=== PATIENT | male | born 1995 | race Caucasian/White ===

== ENCOUNTER 2019-12-15 20:23 | Emergency (ER) | payer OTHER, SELFPAY ==
[2019-12-15 20:29] VITALS: BP 119/89; PULSE 66; RESP 19; TEMP 36.8; O2SAT 100
[2019-12-15 20:46] LABS: Basophils Percent Auto 0.2 % (0.2-1.2); Eosinophils Absolute Auto 0.3 K/mm3 (0-0.3); Eosinophils Percent Auto 2.9 % (0-4.4); Hemoglobin 15.4 g/dL (14.0-18.0); Immature Granulocyte Absolute 0.03 K/mm3 (0.00-0.031); Immature Granulocyte Percent A 0.3 % (0-0.5); Lymphocytes Absolute Auto 2.85 K/mm3 (0.9-3.2); Lymphocytes Percent Auto 32.5 % (18.3-44.2); Mean Corpuscular HGB Conc 34.2 g/dl (32-36); Mean Corpuscular Hemoglobin 29.8 pg (26-34); Mean Corpuscular Volume 87.2 fl (80-100); Mean Platelet Volume 9.5 fl (7.4-10.4); Monocytes Absolute Auto 0.6 K/mm3 (0.1-0.6); Monocytes Percent Auto 6.5 % (2.6-8.5); Neutrophils Absolute Auto 5.1 K/mm3 (1.3-6.7); Neutrophils Percent Auto 57.6 % (45.5-73.1); Platelet Count Result 216 k/mm3 (150-375); Red Blood Count 5.16 M/mm3 (4.6-6.20); Red Cell Distribution Width 12.1 % (11.5-14.5); White Blood Count 8.8 K/mm3 (4.5-10.0)
[2019-12-15] MEDS: MAG HYDROX/AL HYDROX/SIMETH 30 ML UDC PO (20:47)
[2019-12-15 20:48] LABS: Add Urine Microscopic? NO; Appearance Urine Clear (Clear); Bilirubin Urine Negative (Negative); Blood Urine Negative (Negative); Color Urine Yellow (Yellow); Glucose Urine UA Negative (Negative); Ketones Urine Negative (Negative); Leukocyte Esterase Ur Negative LEU/UL (Negative); Nitrate Urine Negative (Negative); Protein Urine Negative (Negative); Specific Grav Ur 1.025 (1.001-1.035); Urobilinogen Urine Negative mg/dL (<2.0)
[2019-12-15 20:57] LABS: Alanine Aminotransferase 19 U/L (4-50); Albumin Level 4.8 g/dL (3.5-5.1); Alkaline Phosphatase 54 U/L (38-126); Aspartate Amino Transferase 24 U/L (17-59); Bilirubin,Total 0.4 mg/dL (0.2-1.3); Blood Urea Nitrogen 18 mg/dL (9-20); Calcium 9.4 mg/dL (8.4-10.2); Carbon Dioxide 27 mmol/L (22-30); Chloride 104 mmol/L (98-107); Estimated CRCL calculation 97 ml/min; Estimated Glomerular Filt Rate > 60; Glucose 108 mg/dL (75-110); Lipase 24 U/L (23-300); Sodium 139 mmol/L (137-145)
[2019-12-15 21:21] VITALS: BP 109/78; PULSE 56; RESP 18; O2SAT 100
--- NOTE | 2019-12-15 21:59 | ED.ABDPAIN ---
HPI - Abdominal Pain General Chief Complaint: Abdominal Pain Stated Complaint: cramping in side Time Seen by Provider: 12/15/19 20:25 History of Present Illness HPI narrative: Patient is a 24-year-old male who presents ER with right mid abdominal pain. Patient reports he has had this pain for the last year. It is crampy in nature and occasionally sharp. It is been worse over the last week. He has been seeing Dr. Woodson with GI. Reports he has been taking dicyclomine with minimal relief. He reports he has had a lot of flatulence. No nausea/vomiting/diarrhea/fever/chills/sweats. No dark black stools. No loss of consciousness. Mild constipation. Related Data Home Medications Medication Instructions Recorded Confirmed Zantac 09/15/19 Zofran 09/15/19 Allergies Allergy/AdvReac Type Severity Reaction Status Date / Time No Known Allergies Allergy Verified 09/15/19 13:24 Review of Systems Review of Systems: All systems reviewed & are unremarkable except as noted in HPI and below Constitutional: Constitutional: Denies chills, Denies fever(s) and Denies weakness ENT: Denies nasal congestion and Denies sore throat Cardiovascular: Cardiovascular: Denies chest pain Respiratory: Respiratory: Denies cough, Denies dyspnea and Denies wheezing Gastrointestinal: Gastrointestinal: Reports abdominal pain, Reports bloating, Reports constipation and Denies vomiting Genitourinary: Genitourinary: Denies hematuria, Denies dysuria and Denies urinary frequency PMFSH Past Medical History Medical History (Updated 12/15/19 @ 22:40 by Bryce Lainez MD) Irritable bowel syndrome Surgical History Surgical History (Updated 12/15/19 @ 22:37 by Bryce Lainez MD) No pertinent past surgical history Social History Social History (Updated 12/15/19 @ 22:37 by Bryce Lainez MD) Substance use: never Gender identity (if verbalized by the patient): Male Exam Narrative: Exam Narrative: GENERAL: Well-appearing, well-nourished, and in no acute distress. HEAD: Normocephalic, atraumatic. ENT: Mucous membranes moist. CHEST: Clear to auscultation. No respiratory distress. HEART: Regular rate and rhythm. Normal peripheral pulses. ABDOMEN: Soft, nontender, nondistended, normal active bowel sounds. EXTREMITIES: Normal range of motion. No edema. SKIN: Warm, dry, no rash. NEURO: Alert and oriented x3.\ Course Course Emergency Course: Benign exam with normal lab work. Mylanta improved bloating. Recommend stool softeners for mild constipation and simethicone for bloating. Continue dicyclomine. Vital Signs Vital signs: Vital Signs Temperature 98.2 F 12/15/19 20:29 Pulse Rate 66 12/15/19 20:29 Respiratory Rate 19 12/15/19 20:29 Blood Pressure 119/89 12/15/19 20:29 Pulse Oximetry 100 12/15/19 20:29 Temperature 98.2 F 12/15/19 20:29 Pulse Rate 56 L 12/15/19 21:21 Respiratory Rate 18 12/15/19 21:21 Blood Pressure 109/78 12/15/19 21:21 Pulse Oximetry 100 12/15/19 21:21 MDM - Abdominal Pain Lab Data Result diagrams: 12/15/19 20:39 12/15/19 20:39 Labs: Lab Results 12/15/19 12/15/19 12/15/19 Range/Units 20:39 20:39 20:42 WBC 8.8 (4.5-10.0) K/mm3 RBC 5.16 (4.6-6.20) M/mm3 Hgb 15.4 (14.0-18.0) g/dL Hct 45.0 (42.0-52.0) % MCV 87.2 (80-100) fl MCH 29.8 (26-34) pg MCHC 34.2 (32-36) g/dl RDW 12.1 (11.5-14.5) % Plt Count 216 (150-375) k/mm3 MPV 9.5 (7.4-10.4) fl Immature Gran % (Auto) 0.3 (0-0.5) % Neut % (Auto) 57.6 (45.5-73.1) % Lymph % (Auto) 32.5 (18.3-44.2) % [place] % (Auto) 6.5 (2.6-8.5) % Eos % (Auto) 2.9 (0-4.4) % Baso % (Auto) 0.2 (0.2-1.2) % Lymph # (Auto) 2.85 (0.9-3.2) K/mm3 [place] # (Auto) 0.6 (0.1-0.6) K/mm3 Eos # (Auto) 0.3 (0-0.3) K/mm3 Baso # (Auto) 0.0 (0.0-0.1) K/mm3 Abs Immat Gran (auto) 0.03 (0.00-0.031) K/mm3 Absolut
[2019-12-15 22:50] VITALS: BP 123/87; PULSE 91; RESP 18; TEMP 36.7; O2SAT 100
== END 2019-12-15 22:54 | disposition home or self-care (01) ==
PROVIDERS: Emergency Provider Emergency Medicine; PCP Internal Medicine
DX: K58.9 Irritable bowel syndrome, unspecified (principal)
CPT/HCPCS: 36415; 80053; 81003; 83690; 85025; 99283; A9270

== ENCOUNTER 2020-02-20 10:47 | Outpatient (CLI) | payer OTHER, SELFPAY ==
--- NOTE | ~2020-02-20 | US_ITS ---
EXAMINATION: US right upper quadrant DATE: 02/20/2020 11:22 INDICATION: Right upper quadrant abdominal pain. TECHNIQUE: Multiple grayscale and Doppler ultrasound images of the abdomen were obtained. COMPARISON: CT abdomen and pelvis 09/15/2019 FINDINGS: The visualized portions of the head and body of the pancreas are normal. The liver is juan miguel l without focal lesion. No liver surface nodularity. There is normal flow in main portal vein. The ga llbladder is normal in size. No gallstones or gallbladder wall thickening. There was no sonographic M urphy sign. The common duct is normal and measures 4 mm. IMPRESSION: 1. Normal right upper quadrant ultrasound. Reviewed, dictated and finalized at location A.
== END 2020-02-20 10:48 | disposition home or self-care (01) ==
LOC: ANHIMG 10:56
PROVIDERS: PCP Internal Medicine; Visit Provider Internal Medicine Gastroenterology
DX: R10.11 Right upper quadrant pain (principal)
CPT/HCPCS: 76705

== ENCOUNTER 2020-02-24 00:18 | Outpatient (CLI) | payer OTHER, SELFPAY ==
[2020-02-24 17:53] LABS: SARS-CoV-2 RNA PCR Negative
== END 2020-02-24 00:19 | disposition home or self-care (01) ==
LOC: ANHCOVIDDT 00:18
PROVIDERS: Visit Provider Internal Medicine Gastroenterology
DX: Z01.818 Encounter for other preprocedural examination (principal); Z11.59 Encounter for screening for other viral diseases
CPT/HCPCS: 87635; C9803; U0003

== ENCOUNTER 2020-02-27 02:28 | Day surgery (SDC) | payer OTHER, SELFPAY ==
[2020-02-22 14:05] VITALS: BMI 27.9
[2020-02-27 07:56] VITALS: BP 111/63; PULSE 57; RESP 18; TEMP 36.1; O2SAT 99
--- NOTE | 2020-02-27 08:00 | WPDANESEPPF ---
Anes - Initial Pre Proc Eval Procedure: Operation Date: 02/27/20 09:00 Proposed Procedures p Esophagogastroduodenoscopy & Colonoscopy - Allan Woodson MD Date/Time: 02/27/20 08:00 Surgeon: Allan Woodson MD Pre Op Diagnosis: Abdominal Pain Patient Data Age: 25 Gender: M Height: 5 ft 11 in Weight: 90.3 kg Last Vital Signs Temp 36.1 C L 02/27/20 07:56 Pulse 57 L 02/27/20 07:56 Resp 18 02/27/20 07:56 BP 111/63 02/27/20 07:56 Pulse Ox 99 02/27/20 07:56 Allergies Allergy/AdvReac Type Severity Reaction Status Date / Time No Known Allergies Allergy Verified 02/27/20 07:55 Home Medications Medication Instructions Recorded Confirmed Type [id number]-[id number]-vit K-lycop 1 tablet PO DAILY 02/22/20 02/22/20 History [Men's Multivitamin] Patient hx anesthesia problems: none Family hx anesthesia problems: none [facility] Past Medical History Medical History (Updated 02/27/20 @ 08:01 by Mau Barksdale MD) Irritable bowel syndrome Overweight Surgical History Surgical History (Updated 02/27/20 @ 08:01 by Mau Barksdale MD) H/O wrist surgery No pertinent past surgical history Social History Social History Substance use: never Gender identity (if verbalized by the patient): Male Anes - Eval Final PreProcedure Day of Procedure 02/27/20 08:00 Patient weight: overweight Heart: regular rate and rhythm Lungs: clear to auscultation Airway: Mallampati scale class II Neurological: alert and oriented Last oral intake: >/= 8 hours ASA classification: II Emergent: no Anesthetic plan: proceed Anesthesia type and monitoring: general GIVS and standard monitoring Informed Consent: The patient's anesthetic plan and its attendant risks and benefits were discussed with the patient/family/POA. Questions were solicited and answers provided to the satisfaction of the patient/family/POA.
[2020-02-27] MEDS: LACTATED RINGERS 1,000 ML 150 ML IV CONT (08:10)
--- NOTE | 2020-02-27 08:28 | WPDGICN ---
Assessment and Plan Assessment and plan (1) Right sided abdominal pain: Code(s): R10.9 - Unspecified abdominal pain Status: Acute Assessment and Plan: Etiology of right-sided abdominal pain of uncertain etiology. May be musculoskeletal. Cannot exclude related to his intestines. Plan is for EGD to exclude organic disease. Continue fiber supplementation ibuprofen is advised for his pain in the antrum. Colonoscopy will be performed as well because of ongoing abdominal pain in irritable bowel syndrome. To exclude organic disease. (2) IBS (irritable bowel syndrome): Code(s): K58.9 - Irritable bowel syndrome without diarrhea Status: Acute Assessment and Plan: Long history of IBS with her regular bowel habits because of ongoing pain and concern GI endoscopy to exclude organic disease will be performed today. GI Consult Note Consult date/time: 02/27/20 08:28 HPI: Mukund Mast is a 25 year old male Seen in evaluation at the request of . patient has a long history of irritable bowel syndrome. Patient has tried a to take fiber on a regular basis. Initially did well for a brief period of time he states over the weekend he has had intermittent diarrhea. His as well as abdominal pain. He states abdominal pain is worse when active. He Thatch is to feel good when at rest. When pain occurs it tends to be on the right side of the abdomen. After recent episode he had improvement with ibuprofen. Family history is noncontributory. He denies weight loss. But is very concerned about ongoing abdominal pain. Recent ultrasound of the right upper quadrant is unremarkable. Review of Systems Review of Systems: All systems reviewed & are unremarkable except as noted in HPI and below PMFSH Past Medical History Medical History Irritable bowel syndrome Overweight Surgical History Surgical History H/O wrist surgery No pertinent past surgical history Social History Social History Substance use: never Gender identity (if verbalized by the patient): Male Meds Home Medications and Allergies Home Medications Medication Instructions Recorded Confirmed Type fvrvhjyn-bdm-cvejs-vit K-lycop 1 tablet PO DAILY 02/22/20 02/22/20 History [Men's Multivitamin] Allergies Allergy/AdvReac Type Severity Reaction Status Date / Time No Known Allergies Allergy Verified 02/27/20 07:55 Vital Signs Vital Signs - 24 hr 02/27/20 07:56 Temperature 36.1 C L Pulse Rate 57 L Respiratory Rate 18 Blood Pressure 111/63 Pulse Oximetry 99 Exam Narrative: Exam Narrative: Physical exam reveals patient to be alert. Vital signs stable. HEENT exam unremarkable. Lungs are clear to auscultation and percussion. Heart is without murmur or extra sounds. Abdominal exam bowel sounds present soft nontender with no hepatosplenomegaly digital external rectal exam normal.
[2020-02-27] MEDS: BENZOCAINE (*SP) 60 ML SPRAY CAN (HURRICAINE) 1 SPRAY MUCOUS MEM (09:13)
--- NOTE | 2020-02-27 09:23 | SUR.OPER ---
egd ended at 915, colon began 921
[2020-02-27 09:40] VITALS: BP 109/62; PULSE 63; RESP 14; O2SAT 99
[2020-02-27 09:50] VITALS: BP 121/77; PULSE 61; RESP 25; O2SAT 99
[2020-02-27 10:00] VITALS: BP 110/76; PULSE 59; RESP 21; O2SAT 100
== END 2020-02-27 10:20 | disposition home or self-care (01) ==
PROVIDERS: Visit Provider Internal Medicine Gastroenterology
PROC: 0DJ08ZZ Inspection of Upper Intestinal Tract, Via Natural or Artificial Opening Endoscopic (ICD-10-PCS; CPT 43235; principal; 2020-02-27 09:00)
DX: R10.11 Right upper quadrant pain (principal); R10.84 Generalized abdominal pain; K58.9 Irritable bowel syndrome, unspecified; K21.9 Gastro-esophageal reflux disease without esophagitis; E66.3 Overweight; Z68.27 Body mass index [BMI] 27.0-27.9, adult
CPT/HCPCS: 43239; 45378; 87081; J2704; J7120

== ENCOUNTER 2021-05-06 09:26 | Emergency (ER) | payer OTHER, SELFPAY ==
[2021-05-06 09:27] VITALS: BP 122/69; PULSE 57; RESP 20; TEMP 36.9; O2SAT 99
--- NOTE | 2021-05-06 11:32 | ED.EYEPROB ---
HPI - Eye Problem General Chief complaint: Eye Problems Stated complaint: r eye pain Time Seen by Provider: 05/06/21 11:22 Source: patient Mode of arrival: ambulatory Limitations: no limitations History of Present Illness HPI Narrative: Patient is 26 years old white male presented to the ED with right eye discomfort and drainage. Patient is a contact lens user, started having some discomfort at the right eye 3 days ago, did not use contact lenses for the last 2 days, this morning he put his contact lens on and starting having severe discomfort, woke up this morning with crust across the eyelashes. Patient denies any fever, chills, nausea, vomiting, foreign body possibility. Patient is not sure if the contact lens still there or not. Related Data Allergies Allergy/AdvReac Type Severity Reaction Status Date / Time No Known Allergies Allergy Verified 05/06/21 11:11 Review of Systems Review of Systems: CONSTITUTIONAL: Denies fever, chills, or sweats. EYES: Denies visual changes, redness, or discharge. ENT: Denies rhinorrhea, congestion, sore throat, or otalgia. CARDIOVASCULAR: Denies chest pain, palpitations, or edema. RESPIRATORY: Denies cough or dyspnea. GASTROINTESTINAL: Denies abdominal pain, nausea, vomiting, or diarrhea. GENITOURINARY: Denies dysuria or hematuria. SKIN: Denies rash or itching. MUSCULOSKELETAL: Denies back pain, joint pain, or myalgia. NEUROLOGIC: Denies headache, numbness, or weakness. PSYCHIATRIC: Denies anxiety or depression. PMFSH Past Medical History Medical History Irritable bowel syndrome Overweight Surgical History Surgical History H/O wrist surgery No pertinent past surgical history Social History Social History Substance use: never Gender identity (if verbalized by the patient): Male Exam Narrative: General appearance: Well-developed, well-nourished Eyes: Slight right conjunctival injection,, pupil intact, reactive to light bilaterally, no foreign body of the lower eye lid or the upper eyelid, no contact lenses ENT: Oropharynx normal, ears normal, nose normal Neck: Supple, nontender Chest and respiratory: Airway patent, no respiratory distress, no accessory muscle use Heart: Regular rate/rhythm Neurologic: Alert and oriented ?3, FOAM MOLDER is normal as tested, no gross motor deficit Course Course Emergency Course: Stable Vital Signs Vital signs: Vital Signs Temperature 36.9 C 05/06/21 09:27 Pulse Rate 57 L 05/06/21 09:27 Respiratory Rate 20 05/06/21 09:27 Blood Pressure 122/69 05/06/21 09:27 Pulse Oximetry 99 05/06/21 09:27 Temperature 36.9 C 05/06/21 09:27 Pulse Rate 57 L 05/06/21 09:27 Respiratory Rate 20 05/06/21 09:27 Blood Pressure 122/69 05/06/21 09:27 Pulse Oximetry 99 05/06/21 09:27 MDM - Eye Problem MDM Narrative Medical decision making narrative: Conjunctivitis secondary to contact lens is my concern, Pseudomonas infection is my concern. Critical Care Time Critical Care Time Critical Care Time: No Discharge Plan Discharge Clinical Impression: Conjunctivitis Qualifiers: Conjunctivitis type: acute Acute conjunctivitis type: bacterial Laterality: right Qualified Code(s): H10.31 - Unspecified acute conjunctivitis, right eye Patient Disposition: Home, Self-Care Condition: Stable Instructions: Antibiotic Form, Conjunctivitis (ED) Additional Instructions: Return if symptoms are worsening , call your family physician for appointment, take Tylenol as as needed for aches and pain, contin
== END 2021-05-06 12:07 | disposition home or self-care (01) ==
PROVIDERS: Emergency Provider Emergency Medicine
DX: H10.31 Unspecified acute conjunctivitis, right eye (principal); K58.9 Irritable bowel syndrome, unspecified
CPT/HCPCS: 99283

== ENCOUNTER 2021-09-23 18:54 | Emergency (ER) | payer OTHER, SELFPAY ==
--- NOTE | 2021-09-23 19:15 | ED.FEVER ---
HPI - Fever General Chief Complaint: Fever Stated Complaint: fever,cold chills,vomiting Time Seen by Provider: 09/23/21 19:15 Source: patient Mode of arrival: ambulatory Limitations: no limitations History of Present Illness HPI Narrative: 26-year-old man comes in today complaining of fever, chills, vomiting, muscle aches and cough and congestion and she started within the last 24 hours. Patient states that he had similar episodes a week ago and also a week before that. Previous episodes resolved within a day or 2. Patient denies shortness of breath, chest pain, diarrhea, rash, bruising, dysuria, hematuria, and sick exposures. He has not had a COVID or influenza vaccines. MD elicited complaint: fever Onset (ago): day(s) (1) Exacerbating factors: nothing Relieving factors: nothing Associated symptoms: chills, myalgias, headache, rhinorrhea, nasal congestion, sore throat, cough, nausea and vomiting Treatments prior to arrival fever: acetaminophen Related Data Allergies Allergy/AdvReac Type Severity Reaction Status Date / Time No Known Allergies Allergy Verified 05/06/21 11:11 Review of Systems Review of Systems: All systems reviewed & are unremarkable except as noted in HPI and below Constitutional: Constitutional: Reports chills, Reports fatigue and Reports fever(s) Eyes: Eyes: Denies change in vision and Denies photophobia ENT: Reports nasal congestion and Reports sore throat Cardiovascular: Cardiovascular: Denies chest pain and Denies radiating jaw, neck or arm pain Respiratory: Respiratory: Reports cough, Denies dyspnea and Denies wheezing Gastrointestinal: Gastrointestinal: Denies abdominal pain, Denies diarrhea, Reports nausea and Reports vomiting Genitourinary: Genitourinary: Denies hematuria, Denies dysuria and Denies urinary frequency Musculoskeletal: Musculoskeletal: Denies back pain, Reports myalgias, Denies arthralgias and Denies joint swelling Integumentary/Breasts: Skin/Breast: Denies pruritus, Denies erythema and Denies rash Neurologic: Denies vertigo, Denies dizziness and Denies syncope Allergic/Immunologic: Allergic/Immunologic: Denies throat swelling PMFSH Past Medical History Medical History (Updated 09/23/21 @ 20:27 by Reagan Hankins MD) Irritable bowel syndrome Migraine Overweight Surgical History Surgical History H/O wrist surgery No pertinent past surgical history Social History Social History (Updated 09/23/21 @ 19:55 by Reagan Hankins MD) Smoking status: Never smoker Substance use: never Gender identity (if verbalized by the patient): Male Exam Const: General: healthy appearing, no acute distress and alert Orientation/consciousness: patient oriented x3 Limitations: no limitations HENMT: Head: normal to inspection Ears: external ears normal, TM's normal bilaterally and EAC's normal General nose exam: Normal nares present Face and sinus: normal facial exam Mouth: Yes moist mucous membranes Throat: posterior oropharynx normal Eyes: Conjunctivae: conjunctivae normal Pupils: Equal, round and reactive pupils present EOM: EOMs intact bilaterally Resp: Effort & Inspection: normal respiratory effort and not labored Auscultation: clear to auscultation bilaterally, no rales, no rhonchi and no wheezes Cardio: Rate: regular rate Rhythm: regular rhythm Heart sounds: no murmurs GI: GI Palp: Yes Soft to palpation, No Tenderness to palpation present (GI) and No Guarding due to palpation present (GI) Skin: General skin exam: normal color, no jaundice and no pallor Rashes: no rashes Neuro: General: patient oriented x3, moves all extremities, no focal motor deficits and CN's II-XI intact bilaterally Speech: normal speech Gait exam (Neuro): Normal gait present Extrem: General: normal to inspection and no clubbing, cyanosis or edema Psych: Appearance: grossly normal Mental Status: mental status grossly nor
[2021-09-23 19:18] VITALS: BP 123/73; PULSE 103; RESP 22; TEMP 39.3; O2SAT 96
[2021-09-23 19:35] LABS: Add Urine Microscopic? YES; Appearance Urine Clear (Clear); Bilirubin Urine Negative (Negative); Blood Urine Negative (Negative); Color Urine Yellow (Yellow); Glucose Urine UA Negative (Negative); Ketones Urine Trace (Negative); Leukocyte Esterase Ur Negative (Negative); Nitrate Urine Negative (Negative); Protein Urine 1+ (Negative); Urobilinogen Urine 0.2 mg/dL (0.2-1.0); pH Urine 8.5 (5.0-8.0)
[2021-09-23 19:41] LABS: Bacteria Urine Trace /hpf; Mucus Urine Few /lpf; RBC Urine 0-2 /hpf (0-2); Squamous Epithelial Cell Urine None seen /hpf (Few); WBC Urine 0-3 /hpf (0-3)
--- NOTE | 2021-09-23 20:00 | PC.NURSE ---
355ML fluid challange Michelle Mist.
[2021-09-23 20:08] LABS: Influenza A QL RT-PCR Negative (Negative); Influenza B QL RT-PCR Negative (Negative); SARS-CoV-2 RNA PCR Positive (Negative)
[2021-09-23 20:52] VITALS: BP 117/80; PULSE 82; RESP 20; TEMP 37.3; O2SAT 97
== END 2021-09-23 20:53 | disposition home or self-care (01) ==
PROVIDERS: Emergency Provider Emergency Medicine
DX: U07.1 COVID-19 (principal)
CPT/HCPCS: 81001; 87502; 99283; C9803; U0003; U0005

== ENCOUNTER 2021-12-10 19:15 | Emergency (ER) | payer OTHER, SELFPAY ==
[2021-12-10 19:31] VITALS: BP 130/83; PULSE 85; RESP 18; TEMP 36.6; O2SAT 100
[2021-12-10] MEDS: LIDOCAINE HCL 2% PF INJ 5 ML VIAL 2 ML INFILTRATE (19:45)
[2021-12-10] MEDS: ACETAMINOPHEN 325 MG TABLET 650 MG PO (19:45)
--- NOTE | 2021-12-10 20:01 | ED.WOUNDLAC ---
HPI - Wound/Laceration General Chief Complaint: Wound/Laceration Stated Complaint: cut finger opened Time Seen by Provider: 12/10/21 19:17 Source: patient, RN notes reviewed and old records reviewed Mode of arrival: ambulatory Limitations: no limitations History of Present Illness Onset (ago): hour(s) (1) Location: other (dorsal right index finger) Extremity Location: Right: hand Patient tetanus UTD: Yes Context: accidental Associated symptoms: pain Treatments prior to arrival: bandage Related Data Home Medications Medication Instructions Recorded Confirmed No Home Medications 12/10/21 12/10/21 Allergies Allergy/AdvReac Type Severity Reaction Status Date / Time No Known Allergies Allergy Verified 05/06/21 11:11 Review of Systems Review of Systems: All systems reviewed & are unremarkable except as noted in HPI and below PMFSH Past Medical History Medical History Finger laceration Irritable bowel syndrome Migraine Overweight Surgical History Surgical History H/O wrist surgery No pertinent past surgical history Social History Social History Smoking status: Never smoker Substance use: never Gender identity (if verbalized by the patient): Male Exam Const: General: alert Nutritional Appearance: well nourished Orientation/consciousness: patient oriented x3 Limitations: no limitations HENMT: Head: normal to inspection Ears: TM's normal bilaterally General nose exam: Normal external nose present and Normal nares present Mouth: Yes moist mucous membranes Eyes: Conjunctivae: conjunctivae normal Pupils: Equal, round and reactive pupils present EOM: EOMs intact bilaterally Neck: Neck: normal visual inspection and no lymphadenopathy Chest: Chest palpation & inspection: normal inspection of the chest Resp: Effort & Inspection: normal respiratory effort Auscultation: clear to auscultation bilaterally Cardio: Rate: regular rate Rhythm: regular rhythm GI: GI Palp: Yes Soft to palpation and No Tenderness to palpation present (GI) Auscultation: normal bowel sounds Back/Spine/Pelvis: Back: no CVA tenderness Skin: General skin exam: normal color Rashes: no rashes Neuro: General: patient oriented x3, moves all extremities, no meningeal signs, no focal motor deficits and CN's II-XI intact bilaterally Extrem: Other: 2 cm dorsal linear laceration Psych: Appearance: grossly normal and well kempt Mental Status: mental status grossly normal Affect: normal affect Attitude: cooperative Thought content: Yes Normal thought content present Course Course Emergency Course: repaire finger lac, less painful. Reevaluation(s) Date: 12/10/21 Time: 19:33 Vital Signs Vital signs: Vital Signs Temperature 36.6 C 12/10/21 19:31 Pulse Rate 85 12/10/21 19:31 Respiratory Rate 18 12/10/21 19:31 Blood Pressure 130/83 12/10/21 19:31 Pulse Oximetry 100 12/10/21 19:31 Temperature 36.6 C 12/10/21 19:31 Pulse Rate 85 12/10/21 19:31 Respiratory Rate 18 12/10/21 19:31 Blood Pressure 130/83 12/10/21 19:31 Pulse Oximetry 100 12/10/21 19:31 Procedures Laceration 2 cm right index finger laceration: Date: 12/10/21 Time: 19:29 Site: upper extremity Side (If applicable): right Size (cm): 2 Description: linear Depth: simple, single layer and involves muscle layer Local Anesthetic: lidocaine 2% Amount of anesthesia used (mL): 2 Pre-repair: wound explored, irrigated and irrigated extensively ====== Skin Level ====== Skin layer closed with: nylon Size (cm): 3-0 Number of sutures: 2 Technique: simple, interrupted ====== Subcutaneous Layer ====== ====== Muscle Layer ====== ====== Tendon Layer ======
[2021-12-10 20:16] VITALS: BP 133/74; PULSE 90; RESP 18; TEMP 36.4; O2SAT 100
== END 2021-12-10 20:18 | disposition home or self-care (01) ==
PROVIDERS: Emergency Provider Emergency Medicine
DX: S61.210A Laceration without foreign body of right index finger without damage to nail, initial encounter (principal); W45.8XXA Other foreign body or object entering through skin, initial encounter
CPT/HCPCS: 12001; 99282; A9270